=== PATIENT | female | born 1945 | race Caucasian/White ===

== ENCOUNTER 2018-07-03 08:27 | Day surgery (SDC) | payer MEDICARE, BC ==
[~2018-07-03] VITALS: Ht 157.5 cm; Wt 83.2 kg
[2018-07-03] MEDS ORDERED: FENTANYL PF 100 MCG/2ML ONE (08:53)
[2018-07-03 08:54] VITALS: BP 128/95
[2018-07-03] MEDS ORDERED: ALLO300T PO (09:05)
[2018-07-03] MEDS ORDERED: CHOL100012 PO (09:05)
[2018-07-03] MEDS ORDERED: POTA10TA6 PO (09:05)
[2018-07-03] MEDS ORDERED: CARV6.252 PO (09:05)
[2018-07-03] MEDS ORDERED: LEVO137T2 PO (09:05)
[2018-07-03] MEDS ORDERED: FURO20TA3 PO (09:05)
[2018-07-03] MEDS ORDERED: RIVA20TA PO (09:05)
[2018-07-03 09:32] LABS: BASOPHILS # (AUTO) 0.02 x10^3/uL (0-0.1); BASOPHILS % (AUTO) 0 % (0-1); EOSINOPHILS # (AUTO) 0.12 x10^3/uL (0-0.4); EOSINOPHILS % (AUTO) 2 % (1-7); LYMPHOCYTES # (AUTO) 1.27 x10^3/uL (1-3.4); LYMPHOCYTES % (AUTO) 22 % (22-44); MD NO; MEAN CORPUSCULAR HEMOGLOBIN 28.8 pg (27.0-34.8); MEAN CORPUSCULAR HGB CONC 32.3 g/dL (32.4-35.8); MEAN PLATELET VOLUME 7.8 fL (7.4-10.4); MONOCYTES # (AUTO) 0.44 x10^3/uL (0.2-0.8); MONOCYTES % (AUTO) 8 % (2-9); NEUTROPHILS % (AUTO) 67 % (42-75); PLATELET COUNT 224 x10^3/uL (130-400); RED BLOOD COUNT 4.67 x10^6/uL (3.82-5.3); RED CELL DISTRIBUTION WIDTH 15.9 % (9.6-15.2)
[2018-07-03] MEDS ORDERED: PROPOFOL 10 MG/ML, 20ML ONE (09:37)
[2018-07-03 09:41] LABS: ANION GAP 4 mmol/L (5-15); CALCIUM 9.4 mg/dL (8.5-10.1); CHLORIDE 108 mmol/L (98-107); CREATININE 0.98 mg/dL (0.55-1.02)
[2018-07-03] MEDS ORDERED: CARV12.5 PO (09:55)
== END 2018-07-03 11:24 | disposition home or self-care (01) ==
LOC: CACL 08:27
PROVIDERS: ATTEND Internal Medicine Cardiovascular Disease
DX: I48.91 Unspecified atrial fibrillation (principal); I42.9 Cardiomyopathy, unspecified; I10 Essential (primary) hypertension; Z98.890 Other specified postprocedural states
CPT/HCPCS: 36415; 80048; 85025; 92960; J2704; J3010

== ENCOUNTER → 2018-07-13 | Outpatient (CLI) | payer MEDICARE, BC ==
[~2018-07-13] MED LIST: ALLO300T PO; CARV12.5 PO; CARV6.252 PO; CHOL100012 PO; FURO20TA3 PO; LEVO137T2 PO; POTA10TA6 PO; REGADENOSON 0.4 MG/5 ML SYRINGE ONE; RIVA20TA PO
== END | disposition home or self-care (01) ==
LOC: CFH 07:22
PROVIDERS: ATTEND Nurse Practitioner Family
DX: I10 Essential (primary) hypertension (principal); I48.91 Unspecified atrial fibrillation
CPT/HCPCS: 78452; 93017; A9502; J2785